=== PATIENT | female | born 1980 | race African-American/Black ===

== ENCOUNTER 2022-08-22 14:24 | Outpatient (CLI) | payer BC | END 2022-08-22 14:25 | disposition home or self-care (01) | LOC: CSHMAMMO 14:24 | PROVIDERS: ATTEND Family Medicine | DX: Z12.31 Encounter for screening mammogram for malignant neoplasm of breast (principal); Z13.820 Encounter for screening for osteoporosis; Z79.3 Long term (current) use of hormonal contraceptives; M85.88 Other specified disorders of bone density and structure, other site | CPT/HCPCS: 77063; 77067; 77080 ==